=== PATIENT | female | born 1980 | race Caucasian/White ===

== ENCOUNTER 2021-02-02 14:57 | Outpatient (CLI) | payer OTHER, SELFPAY ==
[2021-02-02 16:56] LABS: SARS-CoV-2 RNA PCR Negative (Negative)
== END 2021-02-02 14:58 | disposition home or self-care (01) ==
LOC: CHSLAB 15:05
PROVIDERS: PCP Internal Medicine; Visit Provider Internal Medicine
DX: Z71.84 Encounter for health counseling related to travel (principal); Z20.822 Contact with and (suspected) exposure to COVID-19
CPT/HCPCS: C9803; U0003; U0005

== ENCOUNTER 2021-05-19 11:13 | Outpatient (CLI) | payer OTHER, SELFPAY ==
[2021-05-19 12:15] LABS: SARS-CoV-2 RNA PCR Negative (Negative)
== END 2021-05-19 11:14 | disposition home or self-care (01) ==
LOC: CHSLAB 11:15
PROVIDERS: PCP Internal Medicine; Visit Provider Nurse Practitioner
DX: Z20.822 Contact with and (suspected) exposure to COVID-19 (principal)
CPT/HCPCS: C9803; U0003; U0005

== ENCOUNTER 2021-07-13 11:31 | Outpatient (CLI) | payer SELFPAY ==
[2021-07-13 16:41] LABS: Influenza A QL RT-PCR Negative (Negative); Influenza B QL RT-PCR Negative (Negative); SARS-CoV-2 RNA PCR Negative (Negative)
== END 2021-07-13 11:32 | disposition home or self-care (01) ==
LOC: CHSLAB 11:33
PROVIDERS: PCP Internal Medicine; Visit Provider Internal Medicine
DX: R68.89 Other general symptoms and signs (principal); Z20.822 Contact with and (suspected) exposure to COVID-19
CPT/HCPCS: 87502; C9803; U0003; U0005

== ENCOUNTER 2023-02-14 07:44 | Outpatient (CLI) | payer OTHER, SELFPAY ==
--- NOTE | ~2023-02-14 | MM_ITS ---
EXAMINATION: MM screening [facility] BI w sukhjinder HISTORY: Baseline screening mammogram TECHNIQUE: Craniocaudal and mediolateral oblique 3-D tomosynthesis images were obtained and synthetic 2-D images were generated. CAD analysis was submitted and interpreted. COMPARISON: None, baseline BREAST PARENCHYMAL COMPOSITION: The breasts are heterogeneously dense, which may obscure small masses . FINDINGS: RIGHT BREAST: An asymmetry is present in the middle third of the inner breast 5.5 cm from the nipple on the craniocaudal view. LEFT BREAST: An asymmetry is present in the middle third of the slightly upper breast 4.5 cm from the nipple on the mediolateral oblique. IMPRESSION: 1. Bilateral breast asymmetries. 2. Additional mammographic views and possible breast ultrasound are recommended to evaluate the bilat eral breast asymmetries and establish a baseline given that this is the first mammographic examinatio n. BI-RADS Category 0: Incomplete: Needs additional imaging evaluation. Reviewed, dictated and finalized at location A. IMPRESSION: 1. Bilateral breast asymmetries. 2. Additional mammographic views and possible breast ultrasound are recommended to evaluate the bilateral breast asymmetries and establish a baseline given th at this is the first mammographic examination. BI-RADS Category 0: Incomplete: Needs additional imaging evaluation.
== END 2023-02-14 07:45 | disposition home or self-care (01) ==
LOC: CHSIMG 07:49
PROVIDERS: Visit Provider Obstetrics & Gynecology
DX: Z12.31 Encounter for screening mammogram for malignant neoplasm of breast (principal); R92.8 Other abnormal and inconclusive findings on diagnostic imaging of breast
CPT/HCPCS: 77063; 77067

== ENCOUNTER 2023-02-28 09:20 | Outpatient (CLI) | payer OTHER, SELFPAY ==
--- NOTE | ~2023-02-28 | MMUS_ITS ---
EXAMINATION: MM diagnostic [facility] BI w sukhjinder, US breast BI limited HISTORY: Bilateral breast asymmetries on baseline screening mammogram TECHNIQUE: Additional 3-D tomosynthesis images of the breasts were performed and synthetic 2-D images were generated. CAD analysis was submitted and interpreted. High resolution limited bilateral breast ultrasound was performed. COMPARISON: 02/14/2023 FINDINGS: MAMMOGRAPHIC FINDINGS: The bilateral breast asymmetries disperse with spot compression. No suspicious mass, calcification, o r architectural distortion are identified. ULTRASOUND: There is no evidence of focal abnormal solid or cystic mass in the vicinity of the mammographic findi ng in question of the right breast. There is a 7 mm x 2 mm oval, circumscribed, parallel, hypoechoic mass with no posterior features or internal vascularity at the 1:00 location near the nipple of the l eft breast. IMPRESSION: 1. Probably benign mass to the nipple of the left breast. 2. Recommend 6 month follow-up targeted left breast ultrasound. BI-RADS category 3, probably benign findings. Reviewed, dictated and finalized at location A. IMPRESSION: 1. Probably benign mass to the nipple of the left breast. 2. Recommend 6 month follow-up targeted left breast ultrasound. BI-RADS category 3, probably benign findings.
== END 2023-02-28 09:21 | disposition home or self-care (01) ==
LOC: CHSIMG 09:24
PROVIDERS: PCP Nurse Practitioner Family; Visit Provider Obstetrics & Gynecology
DX: Z12.31 Encounter for screening mammogram for malignant neoplasm of breast (principal); R92.8 Other abnormal and inconclusive findings on diagnostic imaging of breast
CPT/HCPCS: 76642; 77062; 77066; G0279

== ENCOUNTER 2023-10-17 14:48 | Emergency (ER) | payer OTHER, SELFPAY ==
--- NOTE | ~2023-10-17 | XR_ITS ---
EXAMINATION: XR chest 1V portable 10/17/2023 15:32 INDICATION: Cough and congestion PROCEDURE: AP portable chest COMPARISON: No prior studies for comparison. FINDINGS: The lungs are clear. The cardiomediastinal silhouette is within normal limits. There are no pleural effusions. There is no pneumothorax suspected. IMPRESSION: 1: NO ACUTE CARDIOPULMONARY DISEASE. Reviewed, dictated and finalized at location L.
[2023-10-17 14:49] VITALS: BP 129/99; PULSE 96; RESP 18; TEMP 37.1; O2SAT 99
[2023-10-17 15:02] VITALS: O2SAT 99
[2023-10-17 15:39] LABS: Influenza A QL RT-PCR Negative (Negative); Influenza B QL RT-PCR Positive (Negative); SARS-CoV-2 RNA PCR Negative (Negative)
[2023-10-17 15:40] LABS: RSV RNA, RT-PCR Negative (Negative)
--- NOTE | 2023-10-17 15:49 | ED.URI ---
HPI - URI/Sore Throat General Chief Complaint: Upper Respiratory Infection Stated Complaint: congestion; deep cough Time Seen by Provider: 10/17/23 14:54 Source: patient and family Mode of arrival: ambulatory History of Present Illness HPI Narrative: patient here today with a 2 day history of fever and having cough congestion with no shortness of breath currently no fever chills no nausea vomiting no abdominal pain no chest pain does have body aches. MD elicited complaint: fever and cough Related Data Home Medications Medication Instructions Recorded Confirmed norethindrone 1 mg-ethinyl 1 tablet PO DAILY 07/17/19 02/19/23 estradiol 35 mcg tablet Allergies Allergy/AdvReac Type Severity Reaction Status Date / Time sulfamethoxazole Allergy Mild Swelling Verified 10/17/23 14:54 trimethoprim Allergy Unknown Swelling Verified 10/17/23 14:55 Review of Systems Review of Systems: All systems reviewed & are unremarkable except as noted in HPI and below PMFSH Past Medical History Medical History Anxiety Panic attacks Screening for cardiovascular condition Screening for thyroid disorder Social History Social History Smoking packs per day: 1 Smoking cigarettes per day: 20.0 Years smoked: 15 Smoking pack-years: 15.00 Smoking status: Former smoker Tobacco type: cigarettes Second hand tobacco smoke exposure: Yes Smoking end date: 07/22/09 Alcohol intake: current Drinks per week: 3 Alcohol use details: occasionally Substance use: never Substance use type: does not use Lack of Transportation: No Lack of Food: Never True Current Housing: I Have Housing Concerned About Future Housing: No Difficulty Paying Gas/Electric Bills: No Difficulty Paying for Meds: No Currently Unemployed: Decline to Answer Education: Decline to Answer Difficulty w/ Childcare or Family Care: Decline to Answer Exam Const: General: healthy appearing and no acute distress Nutritional Appearance: well nourished Orientation/consciousness: patient oriented x3 Limitations: no limitations HENMT: Head: normal to inspection Eyes: Conjunctivae: conjunctivae normal Neck: Neck: normal visual inspection, no lymphadenopathy and no meningeal signs Chest: Chest palpation & inspection: normal inspection of the chest Resp: Effort & Inspection: normal respiratory effort Auscultation: clear to auscultation bilaterally Cardio: Rate: regular rate Rhythm: regular rhythm GI: GI Palp: Yes Soft to palpation Auscultation: normal bowel sounds Course Course Emergency Course: Patient is positive for influenza and will be sending Tamiflu to patient's pharmacy. Chest x-ray with no acute cardiopulmonary abnormalities. Vital Signs Vital signs: Vital Signs Temperature 37.1 C 10/17/23 14:49 Pulse Rate 96 10/17/23 14:49 Respiratory Rate 18 10/17/23 14:49 Blood Pressure 129/99 H 10/17/23 14:49 Pulse Oximetry 99 10/17/23 14:49 Oxygen Delivery Room Air 10/17/23 14:49 Temperature 37.1 C 10/17/23 14:49 Pulse Rate 96 10/17/23 14:49 Respiratory Rate 18 10/17/23 14:49 Blood Pressure 129/99 H 10/17/23 14:49 Pulse Oximetry 99 10/17/23 15:02 Oxygen Delivery Room Air 10/17/23 15:02 MDM - URI/Sore Throat Lab Data Labs: Lab Results 10/17/23 Range/Units 14:58 Influenza A (RT-PCR) Negative (Negative) Influenza B (RT-PCR) Positive A (Negative) RSV (RT-PCR) Negative (Negative) SARS-CoV-2 RNA (RT-PCR) Negative (Negative) Critical Care Time Critical Care Time Critical Care Time: No Discharge Plan Discharge Clinical Impression: Influenza Patient Disposition: Home, Self-Care Condition: Stable Instructions: Antibiotic Form, Influenza (ED) Additional Instructions: Advised take medicine as prescribed, can take Tylenol o
[2023-10-17 15:51] VITALS: BP 139/96; PULSE 96; RESP 18; TEMP 37.2; O2SAT 99
== END 2023-10-17 16:02 | disposition home or self-care (01) ==
PROVIDERS: Emergency Provider Emergency Medicine
DX: J10.1 Influenza due to other identified influenza virus with other respiratory manifestations (principal); Z87.891 Personal history of nicotine dependence; Z20.822 Contact with and (suspected) exposure to COVID-19
CPT/HCPCS: 71045; 87637; 99283